=== PATIENT | female | born 1955 | race Caucasian/White ===

== ENCOUNTER 2020-05-10 11:01 | Inpatient (IN) | payer MEDICARE ==
[~2020-05-10] VITALS: Ht 157.5 cm; Wt 73.5 kg
[~2020-05-10 11:01] MED LIST: ATORVASTATIN CA10 MG PO; BAYER ASPIRIN E81 MG PO; BENZONATATE200 MG PO; COMBIVENT RESPIMAT IN; CYMBALTA60 MG PO; DOXYCYCL HYC100 MG PO; ENALAPRIL20 MG PO; GABAPENTIN600 MG PO; HYDROCHLOROT12.5 M1 PO; METFORMIN HCL500 MG PO; PRILOSEC20 MG PO; TRAZODONE50 MG PO; VITAMIN D32000 UNIT PO; ZANAFLEX4 M2 PO
--- NOTE | 2020-05-10 11:15 | NUR ---
PT TO ROOM PER W/C FOR EXAM
--- NOTE | 2020-05-10 11:50 | NUR ---
STROKE ALERT CALLED.
--- NOTE | 2020-05-10 11:55 | NUR ---
DR Izabella MEYER ASSESSING PT VIA TELEMED. NO CTA OR TPA NECESSARY AT THIS TIME. RETURN TO ED VIA STRETCHER.
--- NOTE | 2020-05-10 12:11 | NUR ---
PT BACK FROM CT SCAN
--- NOTE | 2020-05-10 12:11 | NUR ---
AWARE OF I STAT OF 0.8
[2020-05-10 12:21] LABS: GFR > 60 ML/MIN (>=60 (CALC)); GFR FOR AFR.AMER. > 60 ML/MIN (>=60 (CALC)); HEMATOCRIT 43.4 % (37.0-47.0); HEMOGLOBIN 13.8 g/dl (12.0-16.0); IMMATURE GRANULOCYTES 0.1 % (0.0-5.0); MEAN CELL VOLUME 94.3 fL CALC (80.0-100.0); MEAN CORPUSCULAR HGB CONC 31.8 g/dL CAL (32.0-36.0); NEUT# 3.42 thou/uL (2.00-7.15); RED BLOOD COUNT 4.6 mill/uL (4.20-5.60); RED CELL DISTRI WIDTH 12.1 % (11.5-15.5)
--- NOTE | 2020-05-10 12:31 | NUR ---
MD AT BEDSIDE TO DISCUSS RESULTS AND POC.
[2020-05-10 12:33] LABS: ACT PARTIAL THROMBO TIME 26.1 SECONDS (20.0-32.5); PROTHROMBIN TIME 9.9 SECONDS (9.0-12.5)
[2020-05-10 12:35] LABS: ALBUMIN 4.3 g/dL (3.2-5.0); ALKALINE PHOSPHATASE 77 u/l (38-126); ANION GAP 11 (6-22 (CALC)); BILIRUBIN, TOTAL 0.5 mg/dL (0.0-1.4); BUN 15 mg/dL (8-23); BUN/CREATININE RATIO 22 (12-20 (CALC)); CARBON DIOXIDE 31 mmol/l (22-30); CHLORIDE 105 mmol/l (95-108); CREATININE 0.7 mg/dL (0.5-1.0); ETHYL ALCOHOL 0 mg/dl (0-30); LIPASE 290 u/l (23-300); MAGNESIUM 2.1 mg/dL (1.6-2.3); POTASSIUM 4.3 mmol/l (3.5-5.1); SGOT/AST 30 u/l (9-36); SODIUM 142 mmol/l (137-146); TOTAL PROTEIN 7.7 g/dL (6.3-8.2)
[2020-05-10] MEDS ORDERED: LISINOPRIL20 MG PO (12:35)
[2020-05-10] MEDS ORDERED: VENLAFAXINE HCL75 M1 PO (12:39)
[2020-05-10] MEDS ORDERED: INDERAL60 MG PO (12:39)
[2020-05-10 12:47] LABS: URINE BILIRUBIN - DIPSTICK NEGATIVE (NEGATIVE); URINE BLOOD DIPSTICK NEGATIVE (NEGATIVE); URINE COLOR YELLOW; URINE GLUCOSE - DIPSTICK NEGATIVE (NEGATIVE); URINE KETONE NEGATIVE (NEGATIVE); URINE LEUK ESTERASE NEGATIVE (NEGATIVE); URINE NITRITE - DIPSTICK NEGATIVE (Negative); URINE PROTEIN - DIPSTICK NEGATIVE (NEG-TRACE)
--- NOTE | 2020-05-10 14:41 | NUR ---
PT REFUSED ASA, PT STATES ALLERGY, CAUSES RED SPOTS.
--- NOTE | 2020-05-10 15:14 | NUR ---
REPORT CALLED TO ADOLFO FALK.
--- NOTE | 2020-05-10 15:23 | NUR ---
TO ICU VIA STRETCHER, MONITORS ATTACHED.
[2020-05-10 16:00] VITALS: BP 142/69; BP 154/70
--- NOTE | 2020-05-10 16:00 | NUR ---
PT ARRIVES TO ROOM 6 IN ICU, SEEN ALERT AND ORIENTED X 3. LUNGS CLEAR, RA. NO REPORT OF PAIN OR SHORTNESS OF BREATH. PT DOES STATE THAT THE RIGHT SIDE OF HER FACE IN STILL NUMB IT HAS BEEN FOR SEVERAL DAYS. NO WEAKNESS NOTED. PT ANSWERS QUESTIONS APPROPRIATELY.
[2020-05-10 16:15] VITALS: BP 154/70
--- NOTE | 2020-05-10 18:15 | NUR ---
PT REMAINS FREE OF STROKE-LIKE SYMPTOMS, HEARD TALKING ON THE PHONE CLEARLY, HAS EATEN MEAL WITHOUT DIFFICULTY. NO COMPLAINTS, NO DISTRESS.
[2020-05-10 19:15] VITALS: BP 128/63
--- NOTE | 2020-05-10 19:20 | NUR ---
ASSESSMENT COMPLETED. DENIES NEEDS/PAIN. DENIES ANY FACIAL NUMBNESS AT THIS TIME. NEURO CHECK COMPLETED. DECREASED MOVEMENT TO RIGHT LEG AND LEFT ARM R/T PREVIOUS INCIDENTS, THIS IS HER BASELINE. IV SITE PATENT AND SL, FLUSHES WELL. LIFELINE REPRESENTATIVES IN PLACE AND READING SB 50'S. ENCOURAGED TO CALL FOR ANY NEEDS. CALL LIGHT IS IN REACH.
[2020-05-10 21:00] VITALS: BP 139/59
--- NOTE | 2020-05-10 22:00 | NUR ---
RESTING IN BED WITH NO DISTRESS NOTED;DENIES NEEDS. CALL LIGHT IS IN REACH. CLEAT FEEDER IN PLACE AND READING SB. WILL CONTINUE TO MONITOR.
[2020-05-10 23:00] VITALS: BP 119/55
--- NOTE | 2020-05-10 23:30 | NUR ---
RESTING IN BED WITH EYES CLOSED; NO DISTRESS NOTED; RESP. EVEN AND UNLABORED. VSS. WILL CONTINUE TO MONITOR. CALL LIGHT IS IN REACH.
[2020-05-11 01:00] VITALS: BP 136/59
--- NOTE | 2020-05-11 02:00 | NUR ---
RESTING IN BED WITH EYES CLOSED;RESP.EVEN AND UNLABORED.CALL LIGHT IS IN REACH.
[2020-05-11 03:00] VITALS: BP 120/52
--- NOTE | 2020-05-11 03:43 | NUR ---
NEURO CHECK REMAINS THE SAME; DENIES ANY NUMBNESS OR TINGLING TO EXTREMETIES. TEMP CHECKED AND IS 99. ENCOURAGED TO CALL FOR ANY NEEDS. CALL LIGHT IS IN REACH.
[2020-05-11 05:02] LABS: HEMOGLOBIN 12.5 g/dl (12.0-16.0); IMMATURE GRANULOCYTES 0.2 % (0.0-5.0); MEAN CELL VOLUME 95.6 fL CALC (80.0-100.0); MEAN CORPUSCULAR HGB 30.6 pG CALC (26.0-32.0); MEAN CORPUSCULAR HGB CONC 32.1 g/dL CAL (32.0-36.0); NEUT# 3.7 thou/uL (2.00-7.15); RED BLOOD COUNT 4.08 mill/uL (4.20-5.60); RED CELL DISTRI WIDTH 12.2 % (11.5-15.5)
[2020-05-11 05:06] LABS: ALBUMIN 3.6 g/dL (3.2-5.0); ALKALINE PHOSPHATASE 77 u/l (38-126); ANION GAP 8 (6-22 (CALC)); BILIRUBIN, TOTAL 0.3 mg/dL (0.0-1.4); BUN 17 mg/dL (8-23); BUN/CREATININE RATIO 19 (12-20 (CALC)); CARBON DIOXIDE 33 mmol/l (22-30); CHLORIDE 105 mmol/l (95-108); CREATININE 0.9 mg/dL (0.5-1.0); GFR > 60 ML/MIN (>=60 (CALC)); GFR FOR AFR.AMER. > 60 ML/MIN (>=60 (CALC)); POTASSIUM 4.1 mmol/l (3.5-5.1); SODIUM 141 mmol/l (137-146); TOTAL PROTEIN 6.3 g/dL (6.3-8.2)
[2020-05-11 05:09] LABS: SGOT/AST 102 u/l (9-36)
[2020-05-11 05:15] VITALS: BP 178/88
[2020-05-11 06:15] VITALS: BP 202/99
--- NOTE | 2020-05-11 06:17 | NUR ---
NOTIFIED DR. ELI OF ELEVATED B/P 202/99 WITH HR IN THE 50'S. NEW ORDERS RECEIVED FOR ONE TIME DOSE OF VASOTEC AND TO BE CARRIED OUT. PT. IS ASYMPTOMATIC AND DENIES KAHN.
--- NOTE | 2020-05-11 06:45 | NUR ---
REPORT RECEIVED FROM MAINTENANCE SERVICE DISPATCHER, PT SITTING UP IN BED, WATCHING TV, DENIES ANY PAIN OR COMPLAINTS AT THIS TIME. BLOOD PRESSURE REMAINS HIGH
[2020-05-11 10:21] VITALS: BP 178/77
[2020-05-11] MEDS ORDERED: AMLODIPINE BESYL5 MG PO (10:43)
[2020-05-11] MEDS ORDERED: PANTOPRAZOLE SO40 M1 PO (10:43)
[2020-05-11] MEDS ORDERED: PLAVIX75 MG PO (10:43)
[2020-05-11] MEDS ORDERED: COZAAR25 MG PO (10:45)
[2020-05-11 11:45] VITALS: BP 164/68
--- NOTE | 2020-05-11 11:58 | NUR ---
PT IV D/C'D AND DRESSED, DISCHARGE PAPERS GIVEN AND GONE OVER WITH, INFORMED PT TO MAKE SURE SHE PICKED UP NEW MEDICATIONS AT PHARMACY AND TO CALL IN AM TO OUTPT TO SCHEDULE HER OUTPT XRAYS AND US. IF FOR ANY REASON SHE FEELS SYMPTOMS COMING BACK OR DOESNT FEEL WELL TO RETURN TO ER FOR EVALUATION AGAIN. PT STEADY ON FEET AND AMBLATORY TO W/C WITH NO PROBLEMS, PLACED IN W/C AND TAKEN TO ER WAITING ROOM TO WAIT FOR AMPOULE EXAMINER BY .
== END 2020-05-11 11:45 | disposition home or self-care (01) | DRG 66 ==
LOC: ED 11:01 → ED-I 13:24 → ED 13:24 → ED-I 13:30 → ED 13:38 → ICU 13:39
PROVIDERS: ADMIT Internal Medicine; ATTEND Internal Medicine
DX: I63.9 Cerebral infarction, unspecified (principal); I16.0 Hypertensive urgency; R20.2 Paresthesia of skin; R29.701 NIHSS score 1; E11.9 Type 2 diabetes mellitus without complications; J44.9 Chronic obstructive pulmonary disease, unspecified; E78.5 Hyperlipidemia, unspecified; M79.7 Fibromyalgia; M19.90 Unspecified osteoarthritis, unspecified site; Z79.02 Long term (current) use of antithrombotics/antiplatelets; Z79.899 Other long term (current) drug therapy; Z88.0 Allergy status to penicillin; Z88.6 Allergy status to analgesic agent

== ENCOUNTER 2020-05-12 09:57 | Emergency (ER) | payer MEDICARE ==
[~2020-05-12] VITALS: Ht 157.5 cm; Wt 72.7 kg
[~2020-05-12 09:57] MED LIST changes: +AMLODIPINE BESYL5 MG PO; +COZAAR25 MG PO; +INDERAL60 MG PO; +LISINOPRIL20 MG PO; +PANTOPRAZOLE SO40 M1 PO; +PLAVIX75 MG PO; +VENLAFAXINE HCL75 M1 PO
[2020-05-12 10:18] LABS: HEMATOCRIT 42.5 % (37.0-47.0); IMMATURE GRANULOCYTES 0.1 % (0.0-5.0); MEAN CELL VOLUME 92.6 fL CALC (80.0-100.0); MEAN CORPUSCULAR HGB 30.5 pG CALC (26.0-32.0); MEAN CORPUSCULAR HGB CONC 32.9 g/dL CAL (32.0-36.0); NEUT# 4.42 thou/uL (2.00-7.15); RED BLOOD COUNT 4.59 mill/uL (4.20-5.60); RED CELL DISTRI WIDTH 12.1 % (11.5-15.5)
[2020-05-12 10:41] LABS: ANION GAP 15 (6-22 (CALC)); BUN 14 mg/dL (8-23); BUN/CREATININE RATIO 22 (12-20 (CALC)); CARBON DIOXIDE 29 mmol/l (22-30); CHLORIDE 102 mmol/l (95-108); CREATININE 0.7 mg/dL (0.5-1.0); GFR > 60 ML/MIN (>=60 (CALC)); GFR FOR AFR.AMER. > 60 ML/MIN (>=60 (CALC)); POTASSIUM 4.3 mmol/l (3.5-5.1); SODIUM 142 mmol/l (137-146)
[2020-05-12 12:16] VITALS: BP 140/66
== END 2020-05-12 12:27 | disposition home or self-care (01) ==
LOC: ED 09:57
PROVIDERS: Family Medicine
DX: I10 Essential (primary) hypertension (principal)